=== PATIENT | male | born 1980 | race Asian ===

== ENCOUNTER 2023-02-13 19:11 | Emergency (ER) | payer OTHER ==
[~2023-02-13] VITALS: Ht 177.8 cm; Wt 95.3 kg
[2023-02-13 19:23] VITALS: BP 132/92; PULSE 65; RESP 16; TEMP 98.8; O2SAT 97
[2023-02-13 20:49] LABS: BASOPHILS % (AUTO) 0.5 % (0.0-2.0); EOSINOPHILS # (AUTO) 0.1 K/uL (0-0.4); EOSINOPHILS % (AUTO) 1.1 % (0.0-4.0); HEMATOCRIT 41.5 % (36-52); HEMOGLOBIN 13.7 g/dL (12.0-18.0); LYMPHOCYTES % (AUTO) 29.8 % (20.5-51.1); MEAN CORPUSCULAR HEMOGLOBIN 30 pg (27-31); MEAN CORPUSCULAR HGB CONC 33 g/dL (33-37); MONOCYTES # (AUTO) 0.4 K/uL (0.8-1.0); MONOCYTES % (AUTO) 5.7 % (1.7-9.3); NEUTROPHILS # (AUTO) 4.2 K/uL (1.8-7.7); NEUTROPHILS % (AUTO) 62.9 % (42.2-75.2); PLATELET COUNT (AUTO) 226 K/uL (140-450); RED BLOOD CELL COUNT(AUTO) 4.66 MIL/uL (4.20-6.10); RED CELL DISTRIBUTION WIDTH 13.1 % (11.6-13.7); WHITE BLOOD COUNT (AUTO) 6.7 K/uL (4.8-10.8)
[2023-02-13 21:15] LABS: ALBUMIN 4.6 g/dL (3.4-5.0); ANION GAP 14.8 (8-16); CARBON DIOXIDE 28.1 mmol/L (21-32); CREATININE 1.1 mg/dL (0.6-1.3); POTASSIUM 3.9 mmol/L (3.5-5.1); TOTAL BILIRUBIN 0.5 mg/dL (0.0-1.0); TOTAL PROTEIN, SERUM 7.9 g/dL (6.4-8.2)
== END 2023-02-13 20:51 | disposition left against medical advice (07) ==
LOC: MED 19:11
DX: R07.9 Chest pain, unspecified (principal); Z53.21 Procedure and treatment not carried out due to patient leaving prior to being seen by health care provider
CPT/HCPCS: 36415; 80053; 83880; 84484; 85025; 93005; 99281

== ENCOUNTER 2023-02-13 21:10 | Emergency (ER) | payer OTHER ==
[~2023-02-13] VITALS: Ht 177.8 cm; Wt 95.3 kg
[2023-02-13 22:18] VITALS: BP 115/67; PULSE 66; RESP 16; TEMP 97.2; O2SAT 97
[2023-02-13 23:16] VITALS: BP 115/67; PULSE 66; RESP 16; TEMP 97.2; O2SAT 97
== END 2023-02-13 23:16 | disposition home or self-care (01) ==
LOC: MED 21:10
DX: R07.9 Chest pain, unspecified (principal)
CPT/HCPCS: 71046; 99283